=== PATIENT | female | born 1980 | race African-American/Black ===

== ENCOUNTER 2022-01-08 14:20 | Inpatient (IN) | payer OTHER ==
[2022-01-08] MEDS ORDERED: BENZOCAINE 28 GM HEMORRHOIDAL OINTMENT TP PRN (14:56)
[2022-01-08] MEDS ORDERED: BISACODYL 10 MG SUPP.RECT RC PRN (14:56)
[2022-01-08] MEDS ORDERED: BENZOCAINE 20% 57 GM BOTTLE TP PRN (14:56)
[2022-01-08] MEDS ORDERED: METHYLERGONOVINE MALEATE 0.2 MG/1 ML AMP IM PRN (14:56)
[2022-01-08] MEDS ORDERED: WITCH HAZEL 50% (TUCKS) 40 PAD/JAR PAD TP PRN (14:56)
[2022-01-08] MEDS ORDERED: OXYTOCIN 20 UNITS in 0.9% NS 20 UNIT/1,000 ML INFUS.BAG IV SCH (15:00)
[2022-01-08] MEDS ORDERED: ELECTROLYTE-148 SOLN 1,000 ML IV SCH (15:00)
[2022-01-08] MEDS ORDERED: OXYTOCIN 10 UNITS/ML VIAL IM ONE (15:15)
[2022-01-08] MEDS: IBUPROFEN 600 MG TABLET (FP) PO PRN (15:15)
[2022-01-08] MEDS ORDERED: IBUPROFEN 600 MG TABLET (FP) PO ONE (15:15)
[2022-01-08 15:49] LABS: BASO % 0.2 % (0-2.0); HEMATOCRIT 33.1 % (32.4-45.2); HEMOGLOBIN 11.4 GM/dL (10.7-15.3); LYMPH % 8.6 % (8-40); MCH 31.9 pg (25.7-33.7); MCHC 34.3 g/dl (32.0-36.0); MEAN PLT VOLUME 7.7 fl (7.5-11.1); NEUT % 84.2 % (42.8-82.8); PLATELET COUNT 160 10^3/uL (134-434); RBC 3.55 M/mm3 (3.60-5.2); WHITE BLOOD COUNT 9.8 K/mm3 (4.0-10.0)
[2022-01-08 15:57] LABS: INR 0.98 (0.83-1.09); PROTHROMBIN TIME (PATIENT) 11.3 SEC (9.7-13.0)
[2022-01-08 15:59] LABS: ACTIVATED PTT 27.6 SECONDS (25.2-36.5)
[2022-01-08 16:09] LABS: BLOOD UREA NITROGEN 5.1 mg/dL (7-18); CALCIUM 8.7 mg/dL (8.5-10.1)
[2022-01-08 16:11] LABS: CREATININE 0.4 mg/dL (0.55-1.3)
[2022-01-08 16:13] VITALS: BMI 37.8
[2022-01-08] MEDS: ACETAMINOPHEN 325 MG TABLET (FP) PO PRN (18:05)
[2022-01-09] MEDS: IBUPROFEN 600 MG TABLET (FP) PO PRN ×3 (01:11→23:42)
[2022-01-09] MEDS: ACETAMINOPHEN 325 MG TABLET (FP) PO PRN (03:50)
[2022-01-09 09:55] LABS: BASO % 0.2 % (0-2.0); EOS % 0.6 % (0-4.5); HEMATOCRIT 28.8 % (32.4-45.2); LYMPH % 14.8 % (8-40); MCHC 34.6 g/dl (32.0-36.0); MEAN CELL VOLUME 92.6 fl (80-96); MEAN PLT VOLUME 8.2 fl (7.5-11.1); MONO % 9.4 % (3.8-10.2); PLATELET COUNT 167 10^3/uL (134-434); RBC 3.11 M/mm3 (3.60-5.2); RDW 12.9 % (11.6-15.6); WHITE BLOOD COUNT 10.5 K/mm3 (4.0-10.0)
[2022-01-09] MEDS: PRENATAL VITAMINS W/ FOLIC ACID TABLET (FP) PO SCH (10:19)
[2022-01-09 21:18] VITALS: RESP 18
[2022-01-09] MEDS ORDERED: SENNOSIDES/DOCUSATE COMBO (SENNA PLUS) TABLET (UD) PO PRN (22:00)
[2022-01-10] MEDS: IBUPROFEN 600 MG TABLET (FP) PO PRN (08:09)
[2022-01-10] MEDS: PRENATAL VITAMINS W/ FOLIC ACID TABLET (FP) PO SCH (09:23)
[2022-01-10 10:18] VITALS: BP 116/74; PULSE 93; TEMP 98.2
== END 2022-01-10 18:45 | disposition home or self-care (01) | DRG 560 ==
LOC: JLDR 14:20 → J3W 17:29
PROVIDERS: ADMIT Obstetrics & Gynecology; ATTEND Obstetrics & Gynecology
PROC: 10E0XZZ Delivery of Products of Conception, External Approach (ICD-10-PCS; principal; 2022-01-08)
DX: O80 Encounter for full-term uncomplicated delivery (principal); Z3A.38 38 weeks gestation of pregnancy; Z37.0 Single live birth
CPT/HCPCS: 36415; 80048; 85025; 85610; 85730; 86780; 86850; 86900; 86901; C9803-CS; U0003; U0005

== ENCOUNTER 2023-12-28 07:05 | Emergency (ER) | payer OTHER ==
[2023-12-28 07:21] VITALS: BP 140/84; PULSE 79; RESP 18; TEMP 97.7; BMI 27.6
[2023-12-28] MEDS ORDERED: KETOROLAC TROMETHAMINE 30 MG/1 ML VIAL ONE (07:33)
[2023-12-28] MEDS: KETOROLAC TROMETHAMINE 15 MG/ML VIAL IM ONE (07:40)
[2023-12-28] MEDS ORDERED: LIDOCAINE 4% PATCH TP ONE (07:50)
[2023-12-28] MEDS: LIDOCAINE 4% PATCH TP ONE (07:53)
[2023-12-28] MEDS ORDERED: METHOCARBAMOL 500 MG TABLET ONE (08:45)
[2023-12-28] MEDS: METHOCARBAMOL 500 MG TABLET PO ONE (08:51)
== END 2023-12-28 10:43 | disposition home or self-care (01) ==
LOC: JERFT 07:05 → JER 07:05 → JERFT 10:43
PROC: 3E0133Z Introduction of Anti-inflammatory into Subcutaneous Tissue, Percutaneous Approach (ICD-10-PCS; principal; 2023-12-28)
DX: M54.9 Dorsalgia, unspecified (principal)
CPT/HCPCS: 96372; 99284-25